=== PATIENT | female | born 2000 | race Caucasian/White ===

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

== ENCOUNTER 2023-02-13 22:50 | Emergency (ER) | payer BC ==
[~2023-02-13] VITALS: Ht 165.1 cm; Wt 136.1 kg
[~2023-02-13 22:50] MED LIST changes: +AUGMENTIN 875875 MG PO; +Ipratropium Brom3 ML INH; +PREDNISONE10 MG PO; +ZOFRAN4 MG PO
[2023-02-14] MEDS ORDERED: VIBRAMYCIN100 MG PO (00:08)
== END 2023-02-14 00:19 | disposition home or self-care (01) ==
LOC: ED 22:50
DX: J18.9 Pneumonia, unspecified organism (principal); J45.909 Unspecified asthma, uncomplicated; Z88.2 Allergy status to sulfonamides; Z88.8 Allergy status to other drugs, medicaments and biological substances; Z91.040 Latex allergy status; Z98.890 Other specified postprocedural states; Z20.822 Contact with and (suspected) exposure to COVID-19

== ENCOUNTER 2023-08-11 11:17 | Emergency (ER) | payer OTHER ==
[~2023-08-11] VITALS: Ht 165.1 cm; Wt 133.8 kg
[~2023-08-11 11:17] MED LIST changes: +VIBRAMYCIN100 MG PO
[2023-08-11] MEDS ORDERED: ACETAMINOPHEN 325 MG TAB PO ONE (11:30)
== END 2023-08-11 13:29 | disposition home or self-care (01) ==
LOC: ED 11:17
DX: J06.9 Acute upper respiratory infection, unspecified (principal); Z20.822 Contact with and (suspected) exposure to COVID-19; J45.909 Unspecified asthma, uncomplicated; Z88.2 Allergy status to sulfonamides; Z88.8 Allergy status to other drugs, medicaments and biological substances; Z98.890 Other specified postprocedural states